=== PATIENT | female | born 1955 | race Caucasian/White ===

== ENCOUNTER 2018-06-26 10:26 | Emergency (ER) | payer OTHER ==
[2018-06-26 12:48] VITALS: BP 122/80
--- NOTE | 2018-06-26 12:53 | ED Physician Documentation ---
History of Present Illness - Stated complaint Stated Complaint: SORE THROAT - Chief complaint Chief Complaint: Heent - History obtained from History obtained from: Patient, Family - History of Present Illness Timing: Yesterday Pain level max: 4 Pain level now: 4 - Additonal information Additional information: 62-year-old female who presents to the emergency department with a sore throat and body aches since yesterday. Grandchild is sick with streptococcal pharyngitis. with similar symptoms. Also has had subjective fevers at home. Has chronic nausea and vomiting. Takes Phenergan. Did not take her Phenergan today. Nothing makes the sore throat better. Worse with swallowing Review of Systems Constitutional: reports: Fever, Chills GI: denies: Vomiting, Diarrhea Skin: denies: Rash Musculoskeletal: denies: Neck pain, Back pain Neurologic: denies: Headache PD PAST MEDICAL HISTORY - Past Medical History Past Medical History: No Other Past Medical History: vomiting - Past Surgical History Past Surgical History: No - Present Medications Home Medications: Ambulatory Orders Medication Instructions Recorded Confirmed Pantoprazole [Protonix] 06/26/18 06/26/18 Penicillin V Potassium 500 mg PO Q6HR #40 tablet 06/26/18 Promethazine [Phenergan] 06/26/18 - Allergies Allergies/Adverse Reactions: Allergies Allergy/AdvReac Type Severity Reaction Status Date / Time codeine Allergy Hives Verified 06/26/18 11:02 - Living Situation Living Situation: reports: With family Living Arrangement: reports: At home - Social History Does the pt smoke?: No Does the pt have substance abuse?: No - Family History Family history: reports: Non contributory PD ED PE NORMAL - Vitals Vital signs reviewed: Yes - General General: Alert and oriented X 3 - HEENT HEENT: Ears normal, Moist mucous membranes, Other (Mild posterior pharyngeal erythema without tonsillar exudates. Uvula midline. Normal phonation. No trismus) - Neck Neck: Supple, no meningeal sign, Other (Shotty anterior cervical lymphadenopathy) - Cardiac Cardiac: RRR, Strong equal pulses - Respiratory Respiratory: No respiratory distress, Clear bilaterally - Abdomen Abdomen: Soft, Non tender, Non distended - Derm Derm: Warm and dry - Neuro Neuro: Alert and oriented X 3 - Psych Psych: Normal mood, Normal affect Results - Vitals Vitals: Vital Signs - 24 hr 06/26/18 06/26/18 11:00 12:48 Temperature 2.9 C L 37.5 C Heart Rate 85 86 Respiratory 20 Rate Blood Pressure 122/80 O2 Saturation 97 98 Oxygen O2 Source Room air - Labs Labs: Laboratory Tests 06/26/18 06/26/18 11:00 11:00 Influenza A (Rapid) Negative Influenza B (Rapid) Negative Group A Strep Rapid Negative PD MEDICAL DECISION MAKING - ED course Complexity details: reviewed results, re-evaluated patient, considered differential, d/w patient ED course: 62-year-old female with streptococcal pharyngitis. Her rapid strep is negative, however her grandchildren and her are all positive, therefore I believe it is reasonable to treat her for streptococcal pharyngitis as well. Likely that this is a false negative. Patient is well-appearing, nontoxic. Afebrile. Tolerating p.o. without difficulty. Patient counseled regarding signs and symptoms for which I believe and urgent re-evaluation would be necessary. Patient with good understanding of and agreement to plan and is comfortable going home at this time This document was made in part using voice recognition software. While efforts are made to proofread this document, sound alike and grammatical errors may occur. Departure - Departure Disposition: 01 Home, Self Care Clinical Impression: Strep pharyngitis Condition: Good Instructions: ED Strep Pharyngitis Conf Follow-Up: your,doctor if not better in 2 weeks [Other] Prescriptions: Penicillin V Potassium 500 mg PO Q6HR #40 tablet Comments: Return if you worsen. Take all antibiotics until gone. [facility] [place]
== END 2018-06-26 13:21 | disposition home or self-care (01) ==
LOC: ED 10:26
DX: J02.0 Streptococcal pharyngitis (principal)
CPT/HCPCS: 87070; 87275; 87276; 87430; 99283